=== PATIENT | male | born 1970 | race Caucasian/White ===

== ENCOUNTER 2021-03-27 22:58 | Emergency (ER) | payer BC ==
[~2021-03-27] VITALS: Ht 170.2 cm; Wt 100.4 kg
[2021-03-27 23:06] VITALS: BP 125/67
--- NOTE | 2021-03-27 23:14 | NUR ---
TO ED 12, AMBULATORY.
--- NOTE | 2021-03-27 23:15 | NUR ---
51 Y/O MALE CAME TO THE ED C/O RT ELBOW LACERATION. PT STATES THAT HE "WAS AT WORK CUTTING SOMETHING, AND WHEN HE GOT INTO A HARNESS, THE HARNESS TWISTED AND HE ACCIDENTALLTY CUT HIMSELF WITH THE BLADE." AAOX4 WITH EVEN AND STEADY GAIT; LUNGS CLEAR BL; HR EVEN AND REGULAR; PT DENIES ANY FEVER, CP, SOB, OR COUGH AT THIS TIME; PATIENT STATES PAIN OF 7/10 SHARP ELBOW PAIN AT THIS TIME; VSS; PATIENT POSITIONED FOR COMFORT; HOB ELEVATED; BEDRAILS UP X2; BED DOWN. ER MD MADE AWARE OF PT STATUS. SU[facility]IE [facility]: JENNIFER
[2021-03-27] MEDS ORDERED: LIDOCAINE MPF 1% 10 MG/ML VIAL INJ ONE (23:35)
--- NOTE | 2021-03-28 00:01 | NUR ---
DR GAVIN AT BEDSIDE.
--- NOTE | 2021-03-28 00:05 | NUR ---
NON-ADHERENT DRESSING APPLIED AND WRAPPED. PT TOLERATED WELL.
[2021-03-28 00:13] VITALS: BP 125/67
--- NOTE | 2021-03-28 00:13 | NUR ---
Patient discharged with v/s stable. Written and verbal after care instructions given and explained. Patient verbalized understanding. Ambulatory with steady gait. All questions addressed prior to discharge. Advised to follow up with PMD.
== END 2021-03-28 00:45 | disposition home or self-care (01) ==
LOC: MED 22:58
DX: S51.812A Laceration without foreign body of left forearm, initial encounter (principal); E11.9 Type 2 diabetes mellitus without complications; X78.9XXA Intentional self-harm by unspecified sharp object, initial encounter; Y93.89 Activity, other specified; Y92.89 Other specified places as the place of occurrence of the external cause; Y99.8 Other external cause status
CPT/HCPCS: 12002; 99282; J2001